=== PATIENT | female | born 1955 | race Caucasian/White ===

== ENCOUNTER → 2017-01-28 | Outpatient (CLI) | payer OTHER | LOC: RAD 02:36 | DX: N63 Unspecified lump in breast (principal) ==

== ENCOUNTER → 2017-02-06 | Outpatient (CLI) | payer OTHER ==
--- NOTE | ~2017-02-06 | S ---
[facility] [place] [address] SURGICAL PATH RPT PROCEDURE Name: BIRDIE HERNANDEZ Room #: REG [facility] M..#: [id number] Admission: 02/06/17 Date of : 57 Discharge: Report #: [id number] Path Case #: [id number] PATHOLOGY REPORT COLLECTION DATE: 02/06/2017 RECEIVED DATE: 02/06/2017 SUBMITTING PHYS: Dr. Anton Brewer OTHER PHYS: Dr. Alfredo Tate ADDENDUM REPORT (Order Date: 02/10/2017 12:11) ADDENDUM COMMENT: This addendum is issued subsequent to reviewing well controlled immunohistochemical stain. E-cadherin performed on block A1 - strong membranous reactivity represented in the entire neoplasm consistent with ductal origin. 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 ELECTRONICALLY SIGNED BY: Lulú Terry M.D. DATE/TIME:02/10/2017 14:02 SPECIMEN(S) RECEIVED: A.US left 200 SCM * * * * * * * * * * * * FINAL DIAGNOSIS: Breast, left breast 2:00, 5 cm from nipple, ultrasound-guided core needle core biopsy: - INVASIVE MODERATELY DIFFERENTIATED CARCINOMA WITH LOBULAR FEATURES. - TUMOR MEASURES 16 CM IN CONTIGUOUS LENGTH IN A SINGLE CORE. COMMENT: Specimen type: Needle core biopsy: Tumor site: 2:00, 5 cm from nipple; Tumor quantitation: 16 mm in a single core in contiguous length, present in four of four cores sampled; Histologic type: Invasive carcinoma with lobular features; Histologic grade: Lolis grade II; Tubules, nuclei and mitoses: 3, 2, and 1, respectively; LVSI: Not identified; Perineural invasion: Present; Microcalcifications: Not identified; [address] [address] SURGICAL PATH RPT PROCEDURE Name: CHERELLE HERNANDEZNDA WILL [id number] Admission: 02/06/17 Date of : 57 Discharge: Report #: [id number] Path Case #: [id number] Markers: ER, [place], HER-2/estrellita, Ki-67; Block: A1. E-cadherin immunohistochemical stain is pending at time of this report, and the results will be reported in an addendum to follow. Co-review: Dr. Laron Osullivan. The findings are telephoned to [facility] in the morning of 02/09/17. (IUV:csd; d/t: 02/09/2017) PATHOLOGIST: Lulú Terry M.D. REPORT ELECTRONICALLY SIGNED BY: Lulú Terry M.D. DATE/TIME: 02/09/2017 14:05 * * * * * * * * * * * * GROSS PATHOLOGY: Received in formalin labeled "Birdie Hernandez, left breast 2:00, 5 cm," are multiple needle cores of yellow-hahn fibrofatty tissue measuring 2.0 x 0.6 x 0.2 cm in aggregate dimensions. The tissue is submitted in its entirety in cassette A1. The cold ischemic time is 5 minutes. The total formalin fixation time is 12 hours and 21 minutes. (KAH; 02/06/2017) CLINICAL HISTORY: Left lump INITIAL CPT CODE(S): A; 67991, 60282, 41820(4) Professional services performed by [facility] [address], [place] [address] Technical services performed by [facility] at [address] [place] [address]. PROCEDURE REPORT (Order Date: 02/09/2017 00:00) INTERPRETATION: Quantitative image analysis was performed on block A1. Please see next page for scanned image of results. COMMENT: PATHOLOGIST: Alec Osullivan M.D. REPORT ELECTRONICALLY SIGNED BY: Alec Osullivan M.D. DATE/TIME: 02/11/2017 16:[address] [address] SURGICAL PATH RPT PROCEDURE Name: BIRDIE HERNANDEZ Room #: REG [facility] [place]#: [id number] Admission: 02/06/17 Date of : 57 Discharge: Report #: [id number] Path Case #: [id number] [facility] [address] [address] PHONE: [phone] DIRECTOR: Tony Pena M.D. * * * END OF REPORT * * *
== END | disposition home or self-care (01) ==
LOC: ULTRA 01-30 12:30
DX: C50.912 Malignant neoplasm of unspecified site of left female breast (principal)